=== PATIENT | male | born 1985 | race Caucasian/White ===

== ENCOUNTER 2017-04-12 21:02 | Emergency (ER) | payer BC ==
[~2017-04-12] VITALS: Ht 175.3 cm; Wt 81.6 kg
[2017-04-12 21:29] LABS: BASO % 0 % (0-3); EOS % 3 % (0-3); HEMATOCRIT 44.7 % (39.0-53.0); HEMOGLOBIN 15.5 g/dL (13.0-17.5); LYMPH % 22 % (24-48); MEAN CORPUSCULAR HEMOGLOBIN 30 pg (25-35); MEAN CORPUSCULAR HGB CONC 35 g/dL (31-37); MEAN CORPUSCULAR VOLUME 88 fL (79-100); MONO % 5 % (0-9); NEUT % 70 % (31-73); PLATELET COUNT 348 x10^3/uL (140-400); RED BLOOD COUNT 5.09 x10^6/uL (4.30-5.70); RED CELL DISTRIBUTION WIDTH 12.5 % (11.5-14.5)
[2017-04-12] MEDS ORDERED: ONDANSETRON PF 4 MG/2 ML VIAL. IV ONE (21:30)
[2017-04-12] MEDS ORDERED: IV NORMAL SALINE 1000ML BAG 1,000 ML IV ONE (21:30)
[2017-04-12] MEDS ORDERED: KETOROLAC 15 MG/ML VIAL. IV ONE (21:30)
[2017-04-12] MEDS ORDERED: HYDROmorphone 2 MG/ML VIAL IV ONE (21:30)
[2017-04-12 21:42] LABS: CALCIUM 9.2 mg/dL (8.5-10.1); CREATININE 1.5 mg/dL (0.7-1.3); GFR 54.6; POTASSIUM 3.3 mmol/L (3.5-5.1)
[2017-04-12 21:47] LABS: ALBUMIN 4.2 g/dL (3.4-5.0); ALBUMIN/GLOBULIN RATIO 1.4 (1.0-1.7); TOTAL BILIRUBIN 0.3 mg/dL (0.2-1.0); TOTAL PROTEIN 7.3 g/dL (6.4-8.2)
--- NOTE | 2017-04-12 22:39 | RAD ---
Abdominal and Pelvis CT, Without Contrast: History: Right lower quadrant pain and right flank pain. Comparison: None. Procedure: Axial images are obtained of the abdomen and pelvis, without IV or oral contrast. CT Abdomen without Contrast: Findings: Evaluation of solid organs is limited without contrast. Evaluation of stomach and bowel is limited without oral contrast. Liver: Normal. Spleen: Normal. Pancreas: Normal. Adrenal Glands: Normal. Kidneys: Mild right hydronephrosis and right hydroureter. There is no free air or free fluid. There is no lymphadenopathy. Impression: Please see CT Pelvis without Contrast. End Impression. CT Pelvis without Contrast: Findings: The urinary bladder appears normal. There is no free fluid. There is no lymphadenopathy. There is no pericolonic inflammation identified. There is a 5 mm stone in the distal right ureter just above the UVJ. The appendix is normal. Impression: Mild right hydronephrosis and right hydroureter secondary to a 5 mm stone in the distal right ureter just above the UVJ. End impression PQRS Compliance Statement: One or more of the following individualized dose reduction techniques were utilized for this examination: 1. Automated exposure control 2. Adjustment of the mA and/or kV according to patient size 3. Use of iterative reconstruction technique Electronically signed by: Mehran Ruiz III, MD (04/12/2017 10:36 PM) [facility]
[2017-04-12 23:12] LABS: BILIRUBIN,URINE NEGATIVE (NEG); GLUCOSE,URINE NEGATIVE (NEG); NITRITE,URINE NEGATIVE (NEG); PH,URINE 7.5; PROTEIN,URINE NEGATIVE (NEG-TRACE); UROBILINOGEN,URINE 0.2 mg/dL (0.2 mg/dL)
[2017-04-12 23:18] LABS: BACTERIA,URINE 0 /HPF (0-FEW)
[2017-04-12 23:19] LABS: WBC,URINE OCC /HPF (0-4)
[2017-04-13 00:01] VITALS: BP 126/63
[2017-04-13] MEDS ORDERED: TAMS0.4C97 PO (00:09)
[2017-04-13] MEDS ORDERED: HYDR-971 PO (00:09)
[2017-04-13] MEDS ORDERED: IBUP-1007 PO (00:09)
--- NOTE | 2017-04-13 00:10 | PHYS DOC ---
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 Patient reports that the last time he received a kidney stone was when he was dehydrated and was forcing. Down. Patient reports that today he felt dehydrated as well and that over the last week he had food poisoning and was vomiting a significant amount and was drinking a lot of Gatorade at that time too. Patient denies any other symptomatology at this time. Patient denies any fevers shakes chills vomiting diarrhea cough cold runny nose. Patient reports that he was feeling extremely nauseous while he was in route. Patient reports that he was given fentanyl IV with minimal relief by EMS. Patient reports that the pain he is having today is similar to what he had with his prior kidney stone. Patient reports he is otherwise healthy. No history of hypertension diabetes liver lung or kidney problems. Patient denies any tobacco alcohol or drugs. Patient's ER physical exam was significant for tenderness to palpation to his right flank. Patient mild tenderness palpation to his right lower quadrant. Patient's testes were nontender to palpation. Patient normal cremasteric reflex. Normal prehn sign. No evidence of torsion. Patient had no rebound or guarding. Patient does not present with any signs or symptoms of be consistent with an acute surgical abdomen. Review of systems: Constitutional: Denies fever or chills Eyes: Denies change in visual acuity, redness, or eye pain HENT: Denies nasal congestion or sore throat All other review systems are negative except as documented in the history of present illness portion. Physical exam: Constitutional: Well developed, well nourished, no acute distress, non-toxic appearance. HENT: Normocephalic, atraumatic, bilateral external ears normal, nose normal. Eyes: EOMI, conjunctiva normal, no discharge. Neck: Normal range of motion, no tenderness, supple, no stridor. Cardiovascular:Heart rate regular rhythm Lungs & Thorax: Bilateral breath sounds clear to auscultation no respiratory distress Abdomen: Bowel sounds normal, soft, tenderness, no masses, no pulsatile masses. Skin: Warm, dry, no erythema, no rash. Back: Right flank pain Extremities: No tenderness, no cyanosis, no clubbing, ROM intact, no edema. Neurologic: Alert and oriented X 3, normal motor function, normal sensory function, no focal deficits noted. Psychologic: Affect normal, judgement normal, mood normal. CT scan was consistent with a 5 mm UVJ stone with moderate amount of hydronephrosis. Other pathology identified. UA was remarkable for RBCs in the urine. No significant WBCs noted in the urine. Patient's creatinine is 1.5. This was discussed with him. This might be a reflection of the Viola nephrosis and renal colic with associated dehydration as he is described with his food poisoning and being outdoors all day today. Patient be given IV hydration the ED. I discussed with the patient need to follow-up with his private care physician for this. Assessment and plan 31-year-old gentleman with history significant for renal colic who presents to the ER today with sinus symptoms consistent with renal colic. Patient's CT scan confirmed a 5 mm UVJ stone. While in the ER the patient received Dilaudid, Zofran, Toradol and IV fluids. Upon returning back from CT scan the patient reports his pain is almost completely resolved. Patient is clinically hemodynamically stable this time. Patient feels comfortable the plan to be discharged home. Patient will be sent home with a prescription for [place], ibuprofen, Hytrin. Patient has been instructed on straining his urine. Patient was instructed to return precautions. Current Medications Current Medications Current Medications Medications (Trade) Dose Ordered Sig/Popeye Start Time Stop Time Status Last Admin Dose Admin Hydromorphone HCl (Dilaudid) 1 mg 1X ONCE 04/12/17 21:30 04/12/17 21:31 DC 04/12/17 21:24 1 MG Ketorolac Tromethamine (Toradol) 15 mg 1X ONCE 04/12/17 21:30 04/12/17 21:31 DC 04/12/17 21:25 15 MG Ondansetron HCl (Zofran) 4 mg 1X ONCE 04/12/17 21:30 04/12/17 21:31 DC 04/12/17 21:24 4 MG Sodium Chloride 1,000 ml @ 1,000 mls/hr 1X ONCE 04/12/17 21:30 04/12/17 22:29 DC 04/12/17 21:25 1,000 MLS/HR Allergies Allergies Allergies Coded Allergies Type Severity Reaction Last Updated Verified Sulfa (Sulfonamide Antibiotics) Allergy Intermediate 04/12/17 Yes Current Patient Data Vital Signs Vital Signs Date Time Temp Pulse Resp B/P (MAP) Pulse Ox O2 Delivery O2 Flow Rate FiO2 04/12/17 22:01 92 18 133/79 (97) 97 Room Air 04/12/17 21:03 98.0 98.0 Lab Values Laboratory Tests Test 04/12/17 21:10 04/12/17 23:05 White Blood Count 9.0 x10^3/uL (4.0-11.0) Red Blood Count 5.09 x10^6/uL (4.30-5.70) Hemoglobin 15.5 g/dL (13.0-17.5) Hematocrit 44.7 % (39.0-53.0) Mean Corpuscular Volume 88 fL (79-100) Mean Corpuscular Hemoglobin 30 pg (25-35) Mean Corpuscular Hemoglobin Concent 35 g/dL (31-37) Red Cell Distribution Width 12.5 % (11.5-14.5) Platelet Count 348 x10^3/uL (140-400) Neutrophils (%) (Auto) 70 % (31-73) Lymphocytes (%) (Auto) 22 % (24-48) L Monocytes (%) (Auto) 5 % (0-9) Eosinophils (%) (Auto) 3 % (0-3) Basophils (%) (Auto) 0 % (0-3) Neutrophils # (Auto) 6.2 x10^3uL (1.8-7.7) Lymphocytes # (Auto) 2.0 x10^3/uL (1.0-4.8) Monocytes # (Auto) 0.4 x10^3/uL (0.0-1.1) Eosinophils # (Auto) 0.3 x10^3/uL (0.0-0.7) Basophils # (Auto) 0.0 x10^3/uL (0.0-0.2) Sodium Level 143 mmol/L (136-145) Potassium Level 3.3 mmol/L (3.5-5.1) L Chloride Level 105 mmol/L (98-107) Carbon Dioxide Level 24 mmol/L (21-32) Anion Gap 14 (6-14) Blood Urea Nitrogen 12 mg/dL (8-26) Creatinine 1.5 mg/dL (0.7-1.3) H Estimated GFR (Cockcroft-Gault) 54.6 BUN/Creatinine Ratio 8 (6-20) Glucose Level 153 mg/dL (70-99) H Calcium Level 9.2 mg/dL (8.5-10.1) Total Bilirubin 0.3 mg/dL (0.2-1.0) Aspartate Amino Transferase (AST) 22 U/L (15-37) Alanine Aminotransferase (ALT) 54 U/L (16-63) Alkaline Phosphatase 63 U/L (46-116) Total Protein 7.3 g/dL (6.4-8.2) Albumin 4.2 g/dL (3.4-5.0) Albumin/Globulin Ratio 1.4 (1.0-1.7) Urine Collection Type Unknown Urine Color Yellow Urine Clarity Clear Urine pH 7.5 Urine Specific [place] 1.015 Urine Protein Negative mg/dL (NEG-TRACE) Urine Glucose (UA) Negative mg/dL (NEG) Urine Ketones (Stick) Negative mg/dL (NEG) Urine Blood Small (NEG) Urine Nitrite Negative (NEG) Urine Bilirubin Negative (NEG) Urine Urobilinogen Dipstick 0.2 mg/dL (0.2 mg/dL) Urine Leukocyte Esterase Negative (NEG) Urine RBC 6-10 /HPF (0-2) Urine WBC Occ /HPF (0-4) Urine Bacteria 0 /HPF (0-FEW) Urine Mucus Mod /LPF Laboratory Tests 04/12/17 21:10 Laboratory Tests 04/12/17 21:10 EKG EKG [] Radiology/Procedures Radiology/Procedures [] Course & Med Decision Making Course & Med Decision Making Pertinent Labs and Imaging studies reviewed. (See chart for details) [] Dragon Disclaimer Dragon Disclaimer This electronic medical record was generated, in whole or in part, using a voice recognition dictation system. Departure Departure Impression: Primary Impression: Renal colic on right side Additional Impression: Hydronephrosis Disposition: HOME, SELF-CARE Condition: IMPROVED Referrals: NO PCP (PCP) Patient Instructions: Diet for Kidney Stones, Kidney Stones Additional Instructions: Thank you for allowing us to participate in your care today. Followup with your primary care physician in 3 days if your symptoms do not improve. Call your Primary Doctor tomorrow and inform them of your visit today. If you do not have a primary care provider you can ask for a list of our primary care providers. Return to the emergency department you have any new or concerning findings. This should be evaluated by the primary care physician and any necessary consulting services for continued management within a few days after discharge. Return to emergency room if you have any new or concerning symptoms including but not limited to fever, chills, nausea, vomiting, intractable pain, any new rashes, chest pain, shortness of air, uncontrolled bleeding, difficulty breathing, and/or vision loss. You may have been prescribed medication that can change in your level of thinking and ability to operate machinery. These medications include hydrocodone and Ativan. Also, Benadryl has been known to do this as well. Be sure to check with your pharmacist and ask if the medications you've prescribed can affect your level of consciousness. I recommend not operating heavy machinery or driving while on medication such as these. Scripts Hydrocodone/Apap 5-325 (NORCO 5-325 TABLET) 1 Each Tablet 1 TAB PO QID Y for PAIN, #10 TAB Prov: NARCISA UGARTE MD 04/13/17 Ibuprofen (IBUPROFEN) 600 Mg Tablet 600 MG PO PRN Q6HRS Y for PAIN, #20 TAB Prov: NARCISA UGARTE MD 04/13/17 Tamsulosin Hcl (FLOMAX) 0.4 Mg Cap.er.24h 1 CAP PO HS, #7 CAP 11 Refills Prov: NARCISA UGARTE MD 04/13/17 Problem Qualifiers Additional Impression: Hydronephrosis Hydronephrosis type: with renal and ureteral calculous obstruction Qualified Codes: N13.2 - Hydronephrosis with renal and ureteral calculous obstruction NARCISA UGARTE MD Apr 13, 2017 00:10
== END 2017-04-13 00:20 | disposition home or self-care (01) ==
LOC: ER 21:02
DX: N13.2 Hydronephrosis with renal and ureteral calculous obstruction (principal); J45.909 Unspecified asthma, uncomplicated; Z88.2 Allergy status to sulfonamides; Z87.442 Personal history of urinary calculi
CPT/HCPCS: 36415; 74176; 80053; 81001; 85025; 96361; 96374; 96375; 99285; J1170; J1885; J2405; J7030